=== PATIENT | female | born 1990 | race Hispanic/Latino ===

== ENCOUNTER 2018-07-03 11:02 | Emergency (ER) | payer SELFPAY | END 2018-07-03 11:56 | disposition home or self-care (01) | LOC: EDH 11:02 | DX: H10.023 Other mucopurulent conjunctivitis, bilateral (principal); J06.9 Acute upper respiratory infection, unspecified ==

== ENCOUNTER 2018-08-20 13:51 | Emergency (ER) | payer OTHER, SELFPAY | END 2018-08-20 15:08 | disposition home or self-care (01) | LOC: EDH 13:51 | DX: H66.91 Otitis media, unspecified, right ear (principal); J02.9 Acute pharyngitis, unspecified; Z87.442 Personal history of urinary calculi | CPT/HCPCS: 81025 ==

== ENCOUNTER 2024-03-02 05:00 | Inpatient (IN) | payer BC, SELFPAY ==
[~2024-03-02] VITALS: Ht 165.1 cm; Wt 90.3 kg
[2024-03-02] MEDS: morPHINE 4 MG SYG IVP ONE ×2 (05:38→10:04)
[2024-03-02] MEDS: ondanSETRON 4MG INJ IVP ONE ×2 (05:38→10:04)
[2024-03-02] MEDS: LACTATED RINGERS 1000ML 1,000 ML IV ONE (05:39)
[2024-03-02] MEDS: acetaMINOPHEN 325 MG TAB PO ONE (05:39)
[2024-03-02 05:40] LABS: BASOPHILS # (AUTO) 0.03 K/uL (0.00-0.20); BASOPHILS % (AUTO) 0.4 % (0.0-5.0); EOSINOPHILS # (AUTO) 0.07 K/uL (0.00-0.70); HEMATOCRIT 43.3 % (36-48); IMMATURE GRANULOCYTE ABSOLUTE 0.03 K/uL (0-1); LYMPHOCYTES # (AUTO) 1.6 K/uL (1.0-4.8); LYMPHOCYTES % (AUTO) 21.9 % (21.0-51.0); MEAN CORPUSCULAR HEMOGLOBIN 29.3 pg (27.0-33.0); MEAN CORPUSCULAR HGB CONC 33.9 g/dL (32.0-36.0); MEAN CORPUSCULAR VOLUME 86.4 fL (79-99); MONOCYTES # (AUTO) 0.7 K/uL (0.1-1.0); MONOCYTES % (AUTO) 8.9 % (3.0-13.0); NEUTROPHILS # (AUTO) 4.9 K/uL (1.8-7.7); NEUTROPHILS % (AUTO) 67.4 % (40.0-77.0); PLATELET COUNT (AUTO) 320 K/uL (130-400); RED BLOOD CELL COUNT(AUTO) 5.01 MIL/uL (4.00-5.50); RED CELL DISTRIBUTION WIDTH 12.9 % (11.0-15.5); WHITE BLOOD COUNT (AUTO) 7.3 K/uL (4.8-10.8)
[2024-03-02 05:42] LABS: ADD UA MICROSCOPIC YES; APPEARANCE,URINE CLEAR (CLEAR); BILIRUBIN,URINE NEGATIVE (NEGATIVE); COLOR,URINE YELLOW (YELLOW); GLUCOSE, URINE (UA) NEGATIVE (NEGATIVE); KETONES,URINE NEGATIVE (NEGATIVE); LEUKOCYTE ESTERASE ,URINE 250 Leu/uL (NEGATIVE); NITRATE,URINE NEGATIVE (NEGATIVE); OCCULT BLOOD,URINE LARGE (NEGATIVE); PROTEIN,URINE 50 mg/dL (NEGATIVE); UROBILINOGEN,URINE 0.2 mg/dL (0.2-1.0)
[2024-03-02 05:44] LABS: BACTERIA,URINE RARE /HPF (None Seen); MUCUS,URINE RARE LPF (None Seen); RBC,URINE 51-100 /HPF (0-1); SQUAMOUS EPITHELIAL CELL,UR MOD /HPF (0-2)
[2024-03-02 05:45] LABS: HCG,QUALITATIVE URINE NEGATIVE (NEGATIVE)
[2024-03-02] MEDS: cefTRIAXone 1G VIAL IVPB SCH (05:51)
[2024-03-02 05:55] LABS: CREATININE 0.9 mg/dL (0.5-1.0); POTASSIUM 3.4 mmol/L (3.5-5.1)
[2024-03-02] MEDS ORDERED: IOHEXOL 350 MG/ML 100ML INFUS..BTL IV ONE (07:01)
[2024-03-02] MEDS: ketOROlac 15MG/ML VIAL (15MG/ML) IV ONE (08:41)
[2024-03-02] MEDS ORDERED: hydrALAZine 20MG/ML VIAL IV PRN (10:30)
[2024-03-02] MEDS ORDERED: ketOROlac 15MG/ML VIAL (15MG/ML) IV PRN (10:30)
[2024-03-02] MEDS ORDERED: ALBUTEROL 0.083% 2.5 MG/3 ML INH IH PRN (10:30)
[2024-03-02] MEDS ORDERED: PoTASSium chl 10% ELIXIR 20MEQ 20 MEQ/15 ML UDCUP PO PRN (10:30)
[2024-03-02] MEDS ORDERED: PoTASSium chloRIDE 20MEQ/100ML 100 ML IV PRN (10:30)
[2024-03-02 11:00] LABS: INR 0.95 (0.85-1.15); PROTHROMBIN TIME 10.3 SEC (9.6-11.6)
[2024-03-02 11:01] LABS: PARTIAL THROMBOPLASTIN TIME 29.2 SEC (26.3-35.5)
[2024-03-02 11:10] VITALS: BP 131/83; PULSE 55; RESP 18; TEMP 98.6
[2024-03-02 11:19] LABS: ALBUMIN 3.1 g/dL (3.5-5.0); BILIRUBIN,DIRECT 0.2 mg/dL (0.0-0.3); BILIRUBIN,TOTAL 0.4 mg/dL (0.2-1.0); MAGNESIUM 1.9 mg/dL (1.80-2.40); THYROID STIMULATING HORMONE 2.42 uIU/mL (0.36-3.74); TOTAL PROTEIN, SERUM 7.3 g/dL (6.0-8.3)
[2024-03-02] MEDS ORDERED: TELM40TA8 PO (11:31)
[2024-03-02] MEDS ORDERED: HYDR12.54 PO (11:31)
[2024-03-02] MEDS: FAMOTIDINE 20MG VIAL IV SCH (12:49)
[2024-03-02] MEDS: tamSULOsin HCL 0.4 MG CAP.ER.24H PO SCH (12:49)
[2024-03-02] MEDS: LoSARTan 50 MG TABLET PO SCH (12:49)
[2024-03-02] MEDS: 0.9%NACL 1000ML 1,000 ML IV SCH (12:52)
[2024-03-02 16:00] VITALS: BP 133/87; PULSE 68; RESP 18; TEMP 97.8
[2024-03-02] MEDS: PoTASSium chloRIDE 20MEQ ER 20 MEQ ERTAB PO PRN (16:01)
[2024-03-02] MEDS: SODIUM CHLORIDE 3% FOR INHALATION 4 ML/AMP VIAL.NEB IH ONE (18:39)
[2024-03-02] MEDS: AZITHROMYCIN 250 MG TABLET PO SCH (19:48)
[2024-03-02 20:00] VITALS: O2SAT 98
[2024-03-02] MEDS: morPHINE 2 MG SYG IVP PRN (21:09)
[2024-03-02 21:36] VITALS: BP 149/99; PULSE 75; RESP 18; TEMP 97.5
[2024-03-03] VITALS (26 sets, daily range): BP systolic 112–138; BP diastolic 56–90; PULSE 70–94; RESP 16–19; TEMP 97.4–99.1; O2SAT 96–97
[2024-03-03] MEDS: SODIUM CHLORIDE 3% FOR INHALATION 4 ML/AMP VIAL.NEB IH ONE (01:19)
[2024-03-03 06:31] LABS: BASOPHILS # (AUTO) 0.02 K/uL (0.00-0.20); BASOPHILS % (AUTO) 0.3 % (0.0-5.0); EOSINOPHILS # (AUTO) 0.03 K/uL (0.00-0.70); EOSINOPHILS % (AUTO) 0.4 % (0.0-8.0); HEMATOCRIT 40.8 % (36-48); IMMATURE GRANULOCYTE ABSOLUTE 0.04 K/uL (0-1); LYMPHOCYTES # (AUTO) 1.4 K/uL (1.0-4.8); LYMPHOCYTES % (AUTO) 18.2 % (21.0-51.0); MEAN CORPUSCULAR HEMOGLOBIN 29.8 pg (27.0-33.0); MEAN CORPUSCULAR HGB CONC 32.8 g/dL (32.0-36.0); MEAN CORPUSCULAR VOLUME 90.9 fL (79-99); MONOCYTES # (AUTO) 0.7 K/uL (0.1-1.0); MONOCYTES % (AUTO) 9.5 % (3.0-13.0); NEUTROPHILS # (AUTO) 5.6 K/uL (1.8-7.7); NEUTROPHILS % (AUTO) 71.1 % (40.0-77.0); PLATELET COUNT (AUTO) 277 K/uL (130-400); RED BLOOD CELL COUNT(AUTO) 4.49 MIL/uL (4.00-5.50); RED CELL DISTRIBUTION WIDTH 13.2 % (11.0-15.5); WHITE BLOOD COUNT (AUTO) 7.8 K/uL (4.8-10.8)
[2024-03-03 07:49] LABS: ALBUMIN 2.7 g/dL (3.5-5.0); BILIRUBIN,TOTAL 0.4 mg/dL (0.2-1.0); CREATININE 0.9 mg/dL (0.5-1.0); MAGNESIUM 1.8 mg/dL (1.80-2.40); POTASSIUM 3.7 mmol/L (3.5-5.1); TOTAL PROTEIN, SERUM 6.5 g/dL (6.0-8.3)
[2024-03-03] MEDS: CEFTRIAXONE 2GM VIAL IVPB SCH (09:08)
[2024-03-03] MEDS: LACTATED RINGERS 1000ML 1,000 ML IV ONE (09:39)
[2024-03-03] MEDS ORDERED: proPOFol 10 MG/ML 20ML VIAL IV ONE (09:53)
[2024-03-03] MEDS ORDERED: MIDAZOLAM HCL 1 MG/ML 2ML VIAL ONE (09:53)
[2024-03-03] MEDS ORDERED: FENTanyl CITRate PF 50 MCG/1 ML 2ML VIAL ONE (09:53)
[2024-03-03] MEDS ORDERED: IOHEXOL-350 50ML VIAL IV ONE (09:55)
[2024-03-03] MEDS ORDERED: LIDOCAINE PF 100MG/5ML (2%) SYRINGE 5ML ONE (09:57)
[2024-03-03] MEDS ORDERED: ondanSETRON 4MG INJ ONE (10:27)
[2024-03-03] MEDS: PHENAZOpyridine HCL 200 MG TAB 200 MG TABLET PO SCH (20:13)
[2024-03-04] VITALS: BP 117/66; PULSE 85; RESP 18; TEMP 98.9
[2024-03-04 03:57] VITALS: BP 125/74; PULSE 61; RESP 16; TEMP 98.4
[2024-03-04 05:17] LABS: HEMATOCRIT 38.4 % (36-48); MEAN CORPUSCULAR HEMOGLOBIN 29.1 pg (27.0-33.0); MEAN CORPUSCULAR HGB CONC 33.1 g/dL (32.0-36.0); MEAN CORPUSCULAR VOLUME 88.1 fL (79-99); RED BLOOD CELL COUNT(AUTO) 4.36 MIL/uL (4.00-5.50); RED CELL DISTRIBUTION WIDTH 12.9 % (11.0-15.5); WHITE BLOOD COUNT (AUTO) 6.5 K/uL (4.8-10.8)
[2024-03-04 05:39] LABS: CREATININE 0.7 mg/dL (0.5-1.0); POTASSIUM 3.4 mmol/L (3.5-5.1)
[2024-03-04 07:28] VITALS: PULSE 75; RESP 18; O2SAT 97
[2024-03-04 08:00] VITALS: O2SAT 96
[2024-03-04 08:19] VITALS: BP 152/83; PULSE 76; RESP 16; TEMP 98.9
[2024-03-04 12:31] VITALS: BP 129/80; PULSE 74; RESP 16; TEMP 98.2
[2024-03-04] MEDS ORDERED: TAMS-1 PO (13:50)
[2024-03-04] MEDS ORDERED: LOSA-418 PO (13:50)
[2024-03-04] MEDS ORDERED: AZIT250T9 PO (13:57)
[2024-03-04] MEDS ORDERED: CEFD300C3 PO (13:57)
[2024-03-07 01:10] LABS: MYCOPLASMA AB IGM <770 U/mL (0-769)
== END 2024-03-04 14:55 | disposition home or self-care (01) | DRG 659 ==
LOC: EDH 05:00 → EDHIP 10:06 → 3CH 11:10
PROVIDERS: ADMIT Internal Medicine; ATTEND Internal Medicine
PROC: 0TC68ZZ Extirpation of Matter from Right Ureter, Via Natural or Artificial Opening Endoscopic (ICD-10-PCS; 2024-03-03)
PROC: 0T768DZ Dilation of Right Ureter with Intraluminal Device, Via Natural or Artificial Opening Endoscopic (ICD-10-PCS; principal; 2024-03-03 10:00)
DX: N13.6 Pyonephrosis (principal); J18.9 Pneumonia, unspecified organism; J98.11 Atelectasis; E87.6 Hypokalemia; I10 Essential (primary) hypertension; Z87.442 Personal history of urinary calculi; Z79.899 Other long term (current) drug therapy
CPT/HCPCS: 36415; 71045; 74018; 74177; 80048; 80053; 80076; 81001; 81025; 82360; 83735; 84145; 84443; 85025; 85027; 85610; 85651; 85730; 86140; 86738; 87086; 87449; 93005; 94640; 94664; 96365; 96375; 96376; C1758; C1769; G0378; J0696; J1885; J2003; J2250; J2270; J2405; J2704; J3010; J3490; J7120; Q9967; A4216; A4222; A4223; A4358; A4452; A4510; A4600; C1726; C2617